=== PATIENT | female | born 1980 | race Hispanic/Latino ===

== ENCOUNTER 2017-05-20 14:47 | Emergency (ER) | payer SELFPAY ==
[2017-05-20 15:48] LABS: APPEARANCE,URINE Cloudy (CLEAR); BILIRUBIN,URINE Negative (NEGATIVE); COLOR,URINE Yellow (YELLOW); GLUCOSE, URINE (UA) Negative (NEGATIVE); KETONES,URINE Negative (NEGATIVE); LEUKOCYTE ESTERASE ,URINE Moderate (NEGATIVE); NITRATE,URINE Negative (NEGATIVE); OCCULT BLOOD,URINE Negative (NEGATIVE); PROTEIN,URINE Negative (NEGATIVE)
[2017-05-20 15:49] LABS: HCG,QUAL RESULT NEGATIVE (NEGATIVE)
[2017-05-20 15:57] LABS: RBC,URINE None Seen /HPF (0-1)
[2017-05-20 15:58] LABS: BACTERIA,URINE None Seen /HPF (None Seen); TRICHOMONAS,URINE Rare /LPF (None Seen)
[2017-05-20] MEDS ORDERED: PHENAZOPYRIDINE HCL 200 MG TABLET ONE (16:03)
[2017-05-20] MEDS ORDERED: CEFTRIAXONE SODIUM 1 GM ONE (16:03)
[2017-05-20] MEDS ORDERED: LIDOCAINE HCL-MPF 1% 2ML VIAL ONE (16:03)
[2017-05-20] MEDS ORDERED: IBUPROFEN 600 MG TABLET ONE (16:03)
== END 2017-05-20 16:28 | disposition home or self-care (01) ==
LOC: EDH 14:47
DX: N39.0 Urinary tract infection, site not specified (principal); I10 Essential (primary) hypertension; Z98.890 Other specified postprocedural states; Z72.0 Tobacco use
CPT/HCPCS: 81001; 81025; 96372; 99284; J0696; J3490